=== PATIENT | female | born 1940 | race Caucasian/White ===

== ENCOUNTER 2017-08-08 17:01 | Inpatient (IN) | payer MEDICARE, BC ==
[~2017-08-08] VITALS: Ht 165.1 cm; Wt 90.7 kg
[2017-08-08] VITALS (9 sets, daily range): BP systolic 64–119; BP diastolic 37–104
[2017-08-08] MEDS ORDERED: Metoprolol 5mg/5ml Inj IVP ONE ×2 (17:30→18:15)
[2017-08-08 17:49] LABS: EOSINOPHILS % (AUTO) 0.3 % (0.0-3.0); LYMPHOCYTES % (AUTO) 8.2 % (20.0-45.0); MEAN CORPUSCULAR VOLUME 94 FL (80-99); NEUTROPHILS % (AUTO) 81.5 % (45.0-75.0); PLATELET COUNT 222 K/UL (150-450); RED BLOOD COUNT 4.36 M/UL (4.20-5.40); RED CELL DISTRIBUTION WIDTH 11.2 % (11.6-14.8); WHITE BLOOD COUNT 14.7 K/UL (4.8-10.8)
[2017-08-08 17:50] LABS: ANION GAP 9 mmol/L (5-15); BLOOD UREA NITROGEN 47 mg/dL (7-18); CALCIUM 8.4 MG/DL (8.5-10.1); CARBON DIOXIDE 27 MMOL/L (21-32); CHLORIDE 103 MMOL/L (98-107); CREATININE 1.9 MG/DL (0.55-1.30); POTASSIUM 3.1 MMOL/L (3.5-5.1); SODIUM 139 MMOL/L (136-145)
[2017-08-08 18:04] LABS: ALANINE AMINOTRANSFERASE 24 U/L (12-78); ALBUMIN 3.1 G/DL (3.4-5.0); ALKALINE PHOSPHATASE 93 U/L (46-116); ASPARTATE AMINO TRANSFERASE 15 U/L (15-37); BILIRUBIN,TOTAL 0.5 MG/DL (0.2-1.0); CKMB 1.8 NG/ML (0.0-3.6); CREATINE KINASE 46 U/L (26-308)
[2017-08-08] MEDS ORDERED: BENICAR HCT 401 EAC1 ORAL (19:17)
[2017-08-08] MEDS ORDERED: OMEPRAZOLE20 M2 ORAL (19:17)
[2017-08-08] MEDS ORDERED: LIPITOR40 MG ORAL (19:18)
[2017-08-08] MEDS ORDERED: ASPIRIN EC81 MG ORAL (19:19)
[2017-08-08] MEDS ORDERED: IBUPROFEN600 MG ORAL (19:20)
[2017-08-08] MEDS ORDERED: Metoprolol Succinate XL 50mg tab ORAL ONE (20:00)
--- NOTE | 2017-08-08 20:37 | History and Physical ---
History of Present Illness General Date patient seen: Aug 08, 2017 Time patient seen: 19:10 Reason for Hospitalization: new onset Afib with RVR, NSTEMI Present Illness HPI 77y/o female with pmh of HTN, HLD, GERD who presents with cough, congestion and SOB. Pt states she has been having cough w/ some productive sputum, congestion and SOB/wheezing for the past few days. She went to a urgent care and was given breathing treatments. Given concern, she was sent to ER. Pt denies f/c, chest pain, n/v, d/c, abd pain, dysuria. Pt also w/ LE swelling, R>L which she says is chronic. C/o orthopnea, [place] VAL[place]. In ED, pt noted to be in Afib w/ RVR w/ rate up to 170. She was noted to be tachyneic and wheezing. Pt given MTP 5mg IV and HR improved to 130s, but pt became hypotensive w/ SBP 70s so she was given IVFs w/ improvement. Pt also noted to have elevated troponin. Allergies: Coded Allergies: No Known Allergies (Unverified , 08/08/17) Medication History Scheduled Aspirin Ec* (Aspirin Ec*), 81 MG ORAL DAILY, (Reported) Atorvastatin Calcium* (Lipitor*), 40 MG ORAL BEDTIME, (Reported) Ibuprofen* (Motrin*), 800 MG ORAL THREE TIMES A DAY, (Reported) Olmesartan/Hydrochlorothiazide 40-25MG (Benicar Hct 40-25 Mg Tablet), 1 TAB ORAL DAILY, (Reported) Omeprazole (Omeprazole), 20 MG ORAL DAILY, (Reported) Patient History History Provided By: Patient, Medical Record, PMD Healthcare decision maker Resuscitation status Advanced Directive on File Past Medical/Surgical History Past Medical/Surgical History: (1) HTN (hypertension) (2) HLD (hyperlipidemia) (3) GERD (gastroesophageal reflux disease) Family History Family History: Patient reports no known family medical history. Social History Social History: (1) lives alone Review of Systems Constitutional: Reports: malaise Eye: Reports: no symptoms Respiratory: Reports: cough, orthopnea, shortness of breath, wheezing, [place] Cardiovascular: Reports: no symptoms Gastrointestinal: Reports: no symptoms Genitourinary: Reports: no symptoms Musculoskeletal: Reports: no symptoms Skin: Reports: no symptoms Psychiatric: Reports: no symptoms Neurological: Reports: no symptoms Endocrine: Reports: no symptoms Hematologic/Lymphatic: Reports: no symptoms Physical Exam Physical Exam Narrative General: alert, cooperative, no distress, appears stated age Head: normocephalic, without obvious abnormality, atraumatic Eyes: conjunctivae/corneas clear. PERRL, EOM's intact Throat: lips, mucosa, and tongue normal. MMM Neck: supple, symmetrical, trachea midline, and no JVD Lungs: +wheezing and rhonchi b/l Heart: regular rate and rhythm, S1, S2 normal, no murmur, click, rub or gallop Abdomen: soft, non-tender, non-distended, bowel sounds normal; no masses or organomegaly Extremities: extremities normal, atraumatic, no cyanosis, +R>L 2+ pitting edema to knees Pulses: 2+ and symmetric Skin: skin color, texture, turgor normal; no rashes or lesions Neurologic: grossly normal, no focal deficits Last 24 Hour Vital Signs Date Time Temp Pulse Resp B/P (MAP) Pulse Ox O2 Delivery O2 Flow Rate FiO2 08/08/17 20:17 135 94/64 08/08/17 19:15 125 22 103/54 99 Room Air 08/08/17 18:47 97.7 130 21 113/84 98 Room Air 08/08/17 18:30 97.7 136 18 99/47 99 Room Air 08/08/17 18:15 125 103/54 08/08/17 18:15 97.7 137 18 64/37 99 Room Air 08/08/17 17:45 97.7 138 16 99/47 99 Room Air 08/08/17 17:35 97.7 148 18 104/78 98 Room Air 08/08/17 17:33 172 119/104 08/08/17 17:06 97.7 152 14 119/104 98 Room Air 08/08/17 16:57 97.7 71 20 120/64 99 Room Air Intake and Output 08/08/17 08/09/17 19:00 07:00 Intake Total 0 ml Balance 0 ml Intake Oral 0 ml Laboratory Tests Test 08/08/17 17:27 White Blood Count 14.7 K/UL (4.8-10.8) H Red Blood Count 4.36 M/UL (4.20-5.40) Hemoglobin 13.0 G/DL (12.0-16.0) Hematocrit 41.0 % (37.0-47.0) Mean Corpuscular Volume 94 FL (80-99) Mean Corpuscular Hemoglobin 29.8 PG (27.0-31.0) Mean Corpuscular Hemoglobin Concent 31.7 G/DL (32.0-36.0) L Red Cell Distribution Width 11.2 % (11.6-14.8) L Platelet Count 222 K/UL (150-450) Mean Platelet Volume 6.4 FL (6.5-10.1) L Neutrophils (%) (Auto) 81.5 % (45.0-75.0) H Lymphocytes (%) (Auto) 8.2 % (20.0-45.0) L Monocytes (%) (Auto) 9.0 % (1.0-10.0) Eosinophils (%) (Auto) 0.3 % (0.0-3.0) Basophils (%) (Auto) 1.0 % (0.0-2.0) Prothrombin Time 10.1 SEC (9.30-11.50) Prothromb Time International Ratio 1.0 (0.9-1.1) Activated Partial Thromboplast Time 22 SEC (23-33) L Sodium Level 139 MMOL/L (136-145) Potassium Level 3.1 MMOL/L (3.5-5.1) L Chloride Level 103 MMOL/L (98-107) Carbon Dioxide Level 27 MMOL/L (21-32) Anion Gap 9 mmol/L (5-15) Blood Urea Nitrogen 47 mg/dL (7-18) H Creatinine 1.9 MG/DL (0.55-1.30) H Estimat Glomerular Filtration Rate mL/min (>60) Glucose Level 149 MG/DL (74-106) H Calcium Level 8.4 MG/DL (8.5-10.1) L Magnesium Level 1.8 MG/DL (1.8-2.4) Total Bilirubin 0.5 MG/DL (0.2-1.0) Aspartate Amino Transf (AST/SGOT) 15 U/L (15-37) Alanine Aminotransferase (ALT/SGPT) 24 U/L (12-78) Alkaline Phosphatase 93 U/L (46-116) Total Creatine Kinase 46 U/L (26-308) Creatine Kinase MB 1.8 NG/ML (0.0-3.6) Creatine Kinase MB Relative Index 3.9 Troponin I 0.263 ng/mL (0.000-0.056) Pro-B-Type Natriuretic Peptide 696 pg/mL (0-125) H Total Protein 6.2 G/DL (6.4-8.2) L Albumin 3.1 G/DL (3.4-5.0) L Globulin 3.1 g/dL Albumin/Globulin Ratio 1.0 (1.0-2.7) Height (Feet): 5 Height (Inches): 5.00 Weight (Pounds): 200 Medications Current Medications Medications (Trade) Dose Ordered Sig/Maria Isabel Route PRN Reason Start Time Stop Time Status Last Admin Dose Admin Levofloxacin 150 ml @ 100 mls/hr NOW ONCE IVPB 08/08/17 20:30 08/08/17 21:59 08/08/17 20:20 Sodium Chloride 1,000 ml @ 999 mls/hr Q1H1M ONCE IV 08/08/17 20:30 08/08/17 21:30 08/08/17 20:23 Assessment/Plan Problem List: (1) New onset Afib with RVR (2) NSTEMI (non-ST elevated myocardial infarction) ICD Codes: I21.4 - Non-ST elevation (NSTEMI) myocardial infarction SNOMED: 099861384 (3) Elevated serum creatinine- YANIRA vs CKD (4) HTN (hypertension) ICD Codes: I10 - Essential (primary) hypertension SNOMED: 36511524 (5) HLD (hyperlipidemia) ICD Codes: E78.5 - Hyperlipidemia, unspecified SNOMED: 69621034 (6) GERD (gastroesophageal reflux disease) ICD Codes: K21.9 - Gastro-esophageal reflux disease without esophagitis SNOMED: 722196374 Status: stable Assessment/Plan Admit to [facility] Cardiology and pulmonology consulted Trend trop/EKG Check TTE Check lipid panel, A1C, TSH Start cardizem for rate control. Avoid beta-mirta for now given wheezing Check d-dimer, BLE venous duplex to assess for DVT/PE Consider VQ scan ASA, statin Hold pt's MALIHA-I given elevated Cr, unclear baseline Empiric levaquin for bronchitis/pneumonia Pain control, supportive care, bowel regimen DVT Prophylaxis: SCD, HSQ Code Status: Full Hospital Classification Declaration: Based on this initial evaluation, and depending on the patient's clinical course, I anticipate that this patient will require hospitalization for 2-3 days for Afib w/ RVR, NSTEMI and close respiratory/hemodynamic monitoring. Disposition: Once the patient is stable to leave the hospital, I anticipate the patient will likely be discharged to the following environment: home with I spent 70 minutes on this patient's case, and 38 minutes were dedicated to counseling and/or care coordination. Discussed with patient/family, nursing staff, SW/CM, cardiology regarding clinical status, treatment course, and disposition planning. Time of note may not reflect time of encounter. Frank Brennan M.D. Aug 08, 2017 20:37
[2017-08-08] MEDS ORDERED: Ipratropium 0.02% Inh Soln 2.5ml UD HHN PRN (21:00)
--- NOTE | 2017-08-08 21:07 | Emergency Room Report ---
History of Present Illness General Chief Complaint: General Complaint Source: Patient, EMS Present Illness HPI 77-year-old female presents ED for evaluation. Proximal from urgent care for evaluation of hypotension. Patient states she's been having cough and congestive symptoms for the last few days. States she's been feeling weak and dehydrated. Blood pressure was low in the field and improved after IV fluids. Denies any fevers or chills. Denies chest pain or shortness of breath. Denies nausea or vomiting. Upon arrival patient is tachycardic to the 170s in atrial fibrillation. Patient denies any prior history of atrial fibrillation. No other aggravating relieving factors. Denies any other associated symptoms Allergies: Coded Allergies: No Known Allergies (Unverified , 08/08/17) Patient History Past Medical History: HTN Past Surgical History: none Pertinent Family History: none Social History: Denies: smoking, alcohol use, drug use Now: No Immunizations: UTD Reviewed Nursing Documentation: PMH: Agreed, PSxH: Agreed Nursing Documentation-PMH Past Medical History: No History, Except For Hx Hypertension: Yes Review of Systems All Other Systems: negative except mentioned in HPI Physical Exam Vital Signs Date Time Temp Pulse Resp B/P (MAP) Pulse Ox O2 Delivery O2 Flow Rate FiO2 08/08/17 16:57 97.7 71 20 120/64 99 Room Air Sp02 EP Interpretation: reviewed, normal General Appearance: no apparent distress, alert, GCS 15, non-toxic Head: normocephalic, atraumatic Eyes: bilateral eye normal inspection, bilateral eye PERRL ENT: hearing grossly normal, normal pharynx, no angioedema, normal voice Neck: full range of motion, supple/symm/no masses Respiratory: chest non-tender, crackles, speaking full sentences Cardiovascular #1: no edema, tachycardia Cardiovascular #2: 2+ carotid (R), 2+ carotid (L), 2+ radial (R), 2+ radial (L) , 2+ dorsalis pedis (R), 2+ dorsalis pedis (L) Gastrointestinal: normal bowel sounds, non tender, soft, non-distended, no guarding, no rebound Rectal: deferred Genitourinary: normal inspection, no CVA tenderness Musculoskeletal: back normal, gait/station normal, normal range of motion, non- tender Neurologic: alert, oriented x3, responsive, motor strength/tone normal, sensory intact, speech normal Psychiatric: judgement/insight normal, memory normal, mood/affect normal, no suicidal/homicidal ideation Reflexes: 3+ bicep (R), 3+ bicep (L), 3+ tricep (R), 3+ tricep (L), 3+ knee (R) , 3+ knee (L) Skin: normal color, no rash, warm/dry, well hydrated Lymphatic: no adenopathy Procedures Critical Care Time Critical Care Time i. I feel this is a highly complex case requiring extensive working including EKG/Rhythm strip, Xray/CT/US, Blood/urine lab work, repeat exams while in ED, and administration of strong opiates/narcotics for pain control, admission to hospital or close patient follow up. Total time: 30 min bedside evaluation and treatment excludes procedures (EKG). Reason for critical care: Hypotension, new onset atrial fibrillation, elevated troponin Possible complications: hypotension, hypertension, ME, shock, arrhythmias, metabolic acidosis, end organ damage, respiratory failure. Interventions: Labs, IV fluids, EKG, chest x-ray, Lopressor, trendeleberg, additional IV fluids, aspirin, antibiotics Course: Patient presenting with hypotension, cough and congestive symptoms. EKG shows atrial fibrillation. Given Lopressor with heart rate improving. Patient became hypotensive, improving with IV fluids and Trendelenburg position. Troponin elevated, patient denies any chest pain. Given aspirin. Given antibiotics. Consultations: nursing staff, EMS, family Performed by: Dr Martínez Tolerated well condition = critical j. because of unstable vital signs this patient had a condition that could potentially threaten life or limb. I feel this is a critical patient who required my full attention while patient was considered critical. Total Critical Care Time excluding procedures was greater than 35 minutes Medical Decision Making Diagnostic Impression: Primary Impression: Atrial fibrillation with RVR Additional Impressions: Elevated troponin Renal insufficiency Orthostatic hypotension ER Course Hospital Course 77-year-old female presents ED complaining of cough and congestion. Hypotensive. Differential diagnoses include: ME/unstable angina, contusion, muscle strain, PTX, rib fracture, pneumonia, Clinical course Patient placed on stretcher. on surveillance system monitor which shows A. fib with RVR. Lopressor given with cardioversion. After initial history and physical I ordered labs, EKG, chest x-ray, IVFs labs reviewed- no leukocytosis, hemoglobin/hematocrit ok, BUN/Cr elevated, K 3.1 , troponins elevated, BNP elevated EKG - afib with RVR Chest x-ray- b/l atelctasis vs effusion Patient became hypotensive. Improving with IV fluids and Trendelenburg position. Potassium repleted Patient denies any chest pain Levaquin given. Case discussed with Dr. Greer and he agreed to accept the patient to his service for further care and support I. I feel this is a highly complex case requiring extensive working including EKG/Rhythm strip, Xray/CT/US, Blood/urine lab work, repeat exams while in ED, and administration of strong opiates/narcotics for pain control, admission to hospital or close patient follow up. Diagnosis - afib, elevated troponin, renal insufficiency, orthostatic hypotension admitted to [facility] in critical condition Labs Test 08/08/17 17:27 White Blood Count 14.7 K/UL (4.8-10.8) Red Blood Count 4.36 M/UL (4.20-5.40) Hemoglobin 13.0 G/DL (12.0-16.0) Hematocrit 41.0 % (37.0-47.0) Mean Corpuscular Volume 94 FL (80-99) Mean Corpuscular Hemoglobin 29.8 PG (27.0-31.0) Mean Corpuscular Hemoglobin Concent 31.7 G/DL (32.0-36.0) Red Cell Distribution Width 11.2 % (11.6-14.8) Platelet Count 222 K/UL (150-450) Mean Platelet Volume 6.4 FL (6.5-10.1) Neutrophils (%) (Auto) 81.5 % (45.0-75.0) Lymphocytes (%) (Auto) 8.2 % (20.0-45.0) Monocytes (%) (Auto) 9.0 % (1.0-10.0) Eosinophils (%) (Auto) 0.3 % (0.0-3.0) Basophils (%) (Auto) 1.0 % (0.0-2.0) Prothrombin Time 10.1 SEC (9.30-11.50) Prothromb Time International Ratio 1.0 (0.9-1.1) Activated Partial Thromboplast Time 22 SEC (23-33) Sodium Level 139 MMOL/L (136-145) Potassium Level 3.1 MMOL/L (3.5-5.1) Chloride Level 103 MMOL/L (98-107) Carbon Dioxide Level 27 MMOL/L (21-32) Anion Gap 9 mmol/L (5-15) Blood Urea Nitrogen 47 mg/dL (7-18) Creatinine 1.9 MG/DL (0.55-1.30) Estimat Glomerular Filtration Rate mL/min (>60) Glucose Level 149 MG/DL (74-106) Calcium Level 8.4 MG/DL (8.5-10.1) Magnesium Level 1.8 MG/DL (1.8-2.4) Total Bilirubin 0.5 MG/DL (0.2-1.0) Aspartate Amino Transf (AST/SGOT) 15 U/L (15-37) Alanine Aminotransferase (ALT/SGPT) 24 U/L (12-78) Alkaline Phosphatase 93 U/L (46-116) Total Creatine Kinase 46 U/L (26-308) Creatine Kinase MB 1.8 NG/ML (0.0-3.6) Creatine Kinase MB Relative Index 3.9 Troponin I 0.263 ng/mL (0.000-0.056) Pro-B-Type Natriuretic Peptide 696 pg/mL (0-125) Total Protein 6.2 G/DL (6.4-8.2) Albumin 3.1 G/DL (3.4-5.0) Globulin 3.1 g/dL Albumin/Globulin Ratio 1.0 (1.0-2.7) EKG Diagnostic Results Rate: tachycardiac Rhythm: NSR ST Segments: no acute changes ASA given to the pt in ED: Yes Rhythm Strip Diag. Results EP Interpretation: yes Rhythm: no PVC's Chest X-Ray Diagnostic Results Chest X-Ray Diagnostic Results : Chest X-Ray Ordered: Yes # of Views/Limited/Complete: 1 View Indication: Other - cough EP Interpretation: Yes Interpretation: no pneumothorax, no acute cardiopulmonary disease, other - cardiomegaly Impression: Other - CHF Last Vital Signs Date Time Temp Pulse Resp B/P (MAP) Pulse Ox O2 Delivery O2 Flow Rate FiO2 08/08/17 20:17 135 94/64 08/08/17 19:15 22 99 Room Air 08/08/17 18:47 97.7 Status: improved Disposition: ADMITTED INPATIENT Condition: Critical Referrals: JORGE SYLVESTER M.D(REFERRINGMD) (PCP) MANINDER MARTÍNEZ M.D. Aug 08, 2017 21:07
[2017-08-08] MEDS ORDERED: Mylanta II UD 30ml ORAL PRN (22:00)
[2017-08-08] MEDS ORDERED: Miralax 17gm pkt ORAL PRN (22:00)
[2017-08-08] MEDS: Heparin 5000 units/ml inj SUBQ SCH (22:00)
[2017-08-08] MEDS: Docusate 100mg cap ORAL SCH (22:00)
[2017-08-08] MEDS: dilTIAZem HCl 60mg tab ORAL SCH (23:00)
[2017-08-08] MEDS: guaiFENesin ER 600mg tab ORAL SCH (23:27)
[2017-08-09] VITALS: BP 109/54
[2017-08-09] MEDS: Ipratropium 0.02% Inh Soln 2.5ml UD HHN SCH ×4 (00:37→19:06)
[2017-08-09 04:00] VITALS: BP 139/60
[2017-08-09] MEDS: dilTIAZem HCl 60mg tab ORAL SCH ×3 (06:00→21:54)
[2017-08-09 06:17] LABS: ANION GAP 7 mmol/L (5-15); BLOOD UREA NITROGEN 37 mg/dL (7-18); CALCIUM 7.9 MG/DL (8.5-10.1); CARBON DIOXIDE 25 MMOL/L (21-32); CHLORIDE 108 MMOL/L (98-107); CHOLESTEROL 134 MG/DL (< 200); CREATININE 1.4 MG/DL (0.55-1.30); HDL CHOLESTEROL 52 MG/DL (40-60); PHOSPHORUS 3.6 MG/DL (2.5-4.9); POTASSIUM 3.7 MMOL/L (3.5-5.1); SODIUM 140 MMOL/L (136-145); TRIGLYCERIDES 128 MG/DL (30-150)
[2017-08-09 08:00] VITALS: BP 144/58
[2017-08-09] MEDS: guaiFENesin 100mg/5ml Liq ud ORAL PRN ×2 (08:49→17:56)
[2017-08-09] MEDS: guaiFENesin ER 600mg tab ORAL SCH ×2 (08:50→17:56)
[2017-08-09] MEDS: Docusate 100mg cap ORAL SCH ×2 (08:51→21:00)
[2017-08-09] MEDS: Heparin 5000 units/ml inj SUBQ SCH (08:51)
[2017-08-09] MEDS ORDERED: Aspirin EC 325mg tab ORAL SCH (09:00)
[2017-08-09 10:11] LABS: BASOPHILS % (AUTO) 1.3 % (0.0-2.0); HEMATOCRIT 39.5 % (37.0-47.0); HEMOGLOBIN 13.2 G/DL (12.0-16.0); MEAN CORPUSCULAR VOLUME 95 FL (80-99); MONOCYTES % (AUTO) 9.2 % (1.0-10.0); NEUTROPHILS % (AUTO) 66.5 % (45.0-75.0); PLATELET COUNT 194 K/UL (150-450); RED BLOOD COUNT 4.17 M/UL (4.20-5.40); RED CELL DISTRIBUTION WIDTH 11.7 % (11.6-14.8); WHITE BLOOD COUNT 7.9 K/UL (4.8-10.8)
--- NOTE | 2017-08-09 10:23 | Diagnostic Imaging Report ---
Indication: Dizziness Technique: XRAY Chest 1v Comparison: None Findings: Low lung volumes artifactually exaggerate heart size and vascular markings. Heart size is likely within normal limits given technique. Mediastinal contours are sharp. There is no focal airspace consolidation, pleural effusion or pneumothorax. Multilevel degenerative changes are seen in the thoracic spine. No acute osseous body seen. Subtle density projecting in the region of the lower mediastinum may be related to hiatal hernia. Impression: No radiographic evidence of acute cardiopulmonary disease. Question hiatal hernia versus additional mediastinal mass or artifact. CT of the chest recommended for further evaluation.
--- NOTE | 2017-08-09 10:43 | Cardiac Electrophysiology PN ---
Subjective Subjective [id number] Objective Last 24 Hour Vital Signs Date Time Temp Pulse Resp B/P (MAP) Pulse Ox O2 Delivery O2 Flow Rate FiO2 08/09/17 08:00 97.8 85 19 144/58 100 Room Air 08/09/17 08:00 85 08/09/17 07:21 85 18 99 Room Air 08/09/17 07:14 92 18 98 Room Air 21 08/09/17 06:00 85 139/60 08/09/17 04:00 89 08/09/17 04:00 98.3 80 20 139/60 96 Room Air 08/09/17 00:52 79 18 98 Room Air 08/09/17 00:37 84 18 94 Room Air 08/09/17 00:37 84 18 Room Air 08/09/17 00:00 97.2 96 24 109/54 100 Room Air 08/09/17 00:00 89 08/08/17 23:00 146 117/64 08/08/17 21:00 97.7 146 24 117/64 100 Room Air 08/08/17 20:45 97.8 120 21 88/68 98 Room Air 08/08/17 20:30 97.8 120 21 88/68 98 Room Air 08/08/17 20:17 135 94/64 08/08/17 19:15 125 22 103/54 99 Room Air 08/08/17 18:47 97.7 130 21 113/84 98 Room Air 08/08/17 18:30 97.7 136 18 99/47 99 Room Air 08/08/17 18:15 125 103/54 08/08/17 18:15 97.7 137 18 64/37 99 Room Air 08/08/17 17:45 97.7 138 16 99/47 99 Room Air 08/08/17 17:35 97.7 148 18 104/78 98 Room Air 08/08/17 17:33 172 119/104 08/08/17 17:06 97.7 152 14 119/104 98 Room Air 08/08/17 16:57 97.7 71 20 120/64 99 Room Air Intake and Output 08/09/17 08/10/17 19:00 07:00 Intake Total 250 ml Balance 250 ml Intake Oral 250 ml # Voids 3 Laboratory Tests Test 08/08/17 17:27 08/08/17 23:00 08/09/17 04:10 08/09/17 09:45 White Blood Count 14.7 K/UL (4.8-10.8) H 7.9 K/UL (4.8-10.8) Red Blood Count 4.36 M/UL (4.20-5.40) 4.17 M/UL (4.20-5.40) L Hemoglobin 13.0 G/DL (12.0-16.0) 13.2 G/DL (12.0-16.0) Hematocrit 41.0 % (37.0-47.0) 39.5 % (37.0-47.0) Mean Corpuscular Volume 94 FL (80-99) 95 FL (80-99) Mean Corpuscular Hemoglobin 29.8 PG (27.0-31.0) 31.5 PG (27.0-31.0) H Mean Corpuscular Hemoglobin Concent 31.7 G/DL (32.0-36.0) L 33.3 G/DL (32.0-36.0) Red Cell Distribution Width 11.2 % (11.6-14.8) L 11.7 % (11.6-14.8) Platelet Count 222 K/UL (150-450) 194 K/UL (150-450) Mean Platelet Volume 6.4 FL (6.5-10.1) L 6.8 FL (6.5-10.1) Neutrophils (%) (Auto) 81.5 % (45.0-75.0) H 66.5 % (45.0-75.0) Lymphocytes (%) (Auto) 8.2 % (20.0-45.0) L 21.0 % (20.0-45.0) Monocytes (%) (Auto) 9.0 % (1.0-10.0) 9.2 % (1.0-10.0) Eosinophils (%) (Auto) 0.3 % (0.0-3.0) 2.0 % (0.0-3.0) Basophils (%) (Auto) 1.0 % (0.0-2.0) 1.3 % (0.0-2.0) Prothrombin Time 10.1 SEC (9.30-11.50) Prothromb Time International Ratio 1.0 (0.9-1.1) Activated Partial Thromboplast Time 22 SEC (23-33) L Sodium Level 139 MMOL/L (136-145) 140 MMOL/L (136-145) Potassium Level 3.1 MMOL/L (3.5-5.1) L 3.7 MMOL/L (3.5-5.1) Chloride Level 103 MMOL/L (98-107) 108 MMOL/L (98-107) H Carbon Dioxide Level 27 MMOL/L (21-32) 25 MMOL/L (21-32) Anion Gap 9 mmol/L (5-15) 7 mmol/L (5-15) Blood Urea Nitrogen 47 mg/dL (7-18) H 37 mg/dL (7-18) H Creatinine 1.9 MG/DL (0.55-1.30) H 1.4 MG/DL (0.55-1.30) H Estimat Glomerular Filtration Rate mL/min (>60) mL/min (>60) Glucose Level 149 MG/DL (74-106) H 95 MG/DL (74-106) Calcium Level 8.4 MG/DL (8.5-10.1) L 7.9 MG/DL (8.5-10.1) L Magnesium Level 1.8 MG/DL (1.8-2.4) 1.7 MG/DL (1.8-2.4) L Total Bilirubin 0.5 MG/DL (0.2-1.0) Aspartate Amino Transf (AST/SGOT) 15 U/L (15-37) Alanine Aminotransferase (ALT/SGPT) 24 U/L (12-78) Alkaline Phosphatase 93 U/L (46-116) Total Creatine Kinase 46 U/L (26-308) Creatine Kinase MB 1.8 NG/ML (0.0-3.6) Creatine Kinase MB Relative Index 3.9 Troponin I 0.263 ng/mL (0.000-0.056) 0.789 ng/mL (0.000-0.056) 0.855 ng/mL (0.000-0.056) 0.660 ng/mL (0.000-0.056) Pro-B-Type Natriuretic Peptide 696 pg/mL (0-125) H 1484 pg/mL (0-125) H Total Protein 6.2 G/DL (6.4-8.2) L Albumin 3.1 G/DL (3.4-5.0) L Globulin 3.1 g/dL Albumin/Globulin Ratio 1.0 (1.0-2.7) D-Dimer 0.50 mg/L FEU (0.00-0.49) H Hemoglobin A1c 7.2 % (4.3-6.0) H Phosphorus Level 3.6 MG/DL (2.5-4.9) Triglycerides Level 128 MG/DL (30-150) Cholesterol Level 134 MG/DL (< 200) LDL Cholesterol 66 mg/dL (<100) HDL Cholesterol 52 MG/DL (40-60) Cholesterol/HDL Ratio 2.6 (3.3-4.4) L Thyroid Stimulating Hormone (TSH) 1.028 uiU/mL (0.358-3.740) Free Thyroxine 1.60 NG/DL (0.76-1.46) H RICARDO LINO Aug 09, 2017 10:43
[2017-08-09] MEDS: NovoLOG Insulin Flexpen SUBQ SCH ×3 (11:30→21:00)
[2017-08-09 12:00] VITALS: BP 115/68
[2017-08-09] MEDS ORDERED: Enoxaparin 100mg Inj SUBQ SCH (12:00)
--- NOTE | 2017-08-09 13:11 | Cardiology Report ---
APPROVED REPORT EXAM: Two-dimensional and M-mode echocardiogram with Doppler and color Doppler. INDICATION Shortness of Breath Technically difficult study due to poor acoustical windows. Study quality precludes accurate assessment of regional wall motion. M-mode measurements of left ventricle not obtainable due to cardiac position (angle). Normal left ventricular chamber size, systolic function and wall motion to extent visualized. Left ventricular ejection fraction estimated to be 60 %. No evidence of left ventricular hypertrophy. Anterior Echo-free space, may be due to pericardial fat or effusion. Left atrial chamber size is within normal limits. Right ventricular chamber size is within normal limits. Mild right atrial enlargement. Focal aortic valve sclerosis with adequate cusp excursion. Mildly thickened mitral valve leaflets with normal excursion. Mild mitral annulus and aortic root calcification. Pulmonic valve not well visualized. Normal tricuspid valve structure. IVC at normal size with physiologic collapse. A color flow and spectral Doppler study was performed and revealed: Mild aortic regurgitation. Mild mitral regurgitation. Mitral diastolic velocities suggest reduced left ventricular relaxation c/w mild LV diastolic dysfunction (Grade I ). Mild tricuspid regurgitation. Tricuspid systolic velocities suggests peak right ventricular systolic pressure of 38 mmHg, consistent with mild pulmonary hypertension. Trace pulmonic regurgitation present.
[2017-08-09] MEDS: Enoxaparin Sodium 300mg/3ml vial SUBQ SCH ×2 (13:49→21:53)
[2017-08-09 16:00] VITALS: BP 125/60
[2017-08-09 20:00] VITALS: BP 133/66
[2017-08-09] MEDS ORDERED: Atorvastatin 80mg tab ORAL SCH (21:00)
--- NOTE | 2017-08-09 21:46 | Consultation ---
DATE OF CONSULTATION: 08/09/2017 CARDIOLOGY AND ELECTROPHYSIOLOGY CONSULTATION CONSULTING PHYSICIAN: Noe Pryor M.D. REFERRING PHYSICIAN: Opal Cisneros M.D. REASON FOR CONSULTATION: Atrial fibrillation with rapid ventricular response with heart of 170s, as well as elevated troponin, and abnormal electrocardiogram. HISTORY OF PRESENT ILLNESS: The patient is a very pleasant 77-year-old lady with history of hypertension, who went to the urgent care for cough and weakness. The patient was referred from urgent care for hypotension as well as atrial fibrillation with heart rate of 170s. The patient was evaluated in the emergency room and received Lopressor. The patient became hypotensive and had improved with IV fluids and Trendelenburg position. The troponin was also elevated even though the patient did not have any chest pain. The patient was admitted to [facility] for elevated troponin, atrial fibrillation with rapid ventricular response, as well as orthostatic hypotension. PAST MEDICAL HISTORY: 1. Hypertension. 2. History of spine surgery at [facility]. FAMILY HISTORY: Noncontributory. SOCIAL HISTORY: She is single. Does not smoke or drink alcohol. REVIEW OF SYSTEMS: Thoroughly performed and was negative other than what was mentioned in the history of present illness. PHYSICAL EXAMINATION: VITAL SIGNS: Show blood pressure of 144/58, pulse is 85, respirations are 18, and she is afebrile. HEAD AND NECK: Shows No JVD. LUNGS: Clear. CARDIOVASCULAR: Shows regular S1 and S2 with no gallop. ABDOMEN: Soft. EXTREMITIES: Show bilateral 2+ pitting edema, left more than right. LABORATORY AND DIAGNOSTIC DATA: Labs show sodium 140, potassium 3.7, BUN of 37, creatinine 1.4, and glucose of 95. Troponins 0.789 and 0.855. BNP is 1484. TSH is normal, free T4 is mildly elevated. Initial troponin was 0.263. ASSESSMENT AND PLAN: 1. Atrial fibrillation with rapid ventricular response. This in the office was newly diagnosed. I will start the patient on Cardizem 60 mg every eight hours for rate control. I will start the patient on Lovenox per pharmacy stress test. If the stress test is abnormal, the patient will need cardiac catheterization. If the stress test is negative, then that switch to Eliquis 5 mg b.i.d. We will start the patient also on Lovenox at this time. If the stress is negative, then we will change it to Eliquis. 2. Elevated troponins. The levels were 1.26, 0.78, 0.85, and 0.6. We will schedule the patient for a nuclear stress test for further evaluation. 3. Lower extremity edema and elevated BNP. She had an echocardiogram that showed ejection fraction of 60%, could be due to diastolic dysfunction. We will rule out deep venous thrombosis as well. We will get a lower extremity Doppler. I will start the patient on Lasix 40 mg IV daily. 4. Hypertension. Switch angiotensin-converting enzyme inhibitor to Cardizem at this time for better rate control. 5. Diabetes. 6. Hyperlipidemia, on Lipitor. 7. Upper respiratory tract infection, on Levaquin. It is of note that the patient's CHADS score is more than 3. In view of age more than 75, diabetes, female gender, and hypertension, certainly would need long-term anticoagulation in view of her atrial fibrillation. Thank you very much, Dr. Cisenros, for allowing me to participate in the care of this patient. Please do not hesitate to contact me for any questions regarding my evaluation. Noe Pryor M.D. DR: Vidhya JOB#: [id number] CC:
[2017-08-10] MEDS: Ipratropium 0.02% Inh Soln 2.5ml UD HHN SCH ×3 (01:15→12:38)
[2017-08-10 04:00] VITALS: BP 120/55
[2017-08-10] MEDS: dilTIAZem HCl 60mg tab ORAL SCH ×2 (06:03→14:18)
[2017-08-10] MEDS: NovoLOG Insulin Flexpen SUBQ SCH ×2 (06:05→11:08)
--- NOTE | 2017-08-10 06:47 | General Progress Note ---
Assessment/Plan Problem List: (1) New onset Afib with RVR (2) NSTEMI (non-ST elevated myocardial infarction) ICD Codes: I21.4 - Non-ST elevation (NSTEMI) myocardial infarction SNOMED: 151784504 (3) HTN (hypertension) ICD Codes: I10 - Essential (primary) hypertension SNOMED: 85254732 (4) HLD (hyperlipidemia) ICD Codes: E78.5 - Hyperlipidemia, unspecified SNOMED: 28691646 (5) GERD (gastroesophageal reflux disease) ICD Codes: K21.9 - Gastro-esophageal reflux disease without esophagitis SNOMED: 255462831 (6) YANIRA (acute kidney injury) ICD Codes: N17.9 - Acute kidney failure, unspecified SNOMED: 28708373 (7) DM2 (diabetes mellitus, type 2) ICD Codes: E11.9 - Type 2 diabetes mellitus without complications SNOMED: 29870607 (8) Hypokalemia ICD Codes: E87.6 - Hypokalemia SNOMED: 74963621 (9) Hypomagnesemia ICD Codes: E83.42 - Hypomagnesemia SNOMED: 542702832 Status: stable Assessment/Plan Cardiology and pulmonology consulted Trend trop/EKG--peaked at 0.8 F/u TTE Plan for nuclear cardic stress test Contt cardizem for rate control. Avoid beta-mirta for now given wheezing D-dimer mildly elevated. F/u BLE venous duplex to assess for DVT/PE Consider VQ scan Lovenox per pharmacy for AC for Afib (CHADS2 score of at least 3) Hold pt's MALIHA-I given elevated Cr, unclear baseline Consider diuresis Empiric levaquin for bronchitis/pneumonia (08/08-) Pain control, supportive care, bowel regimen DVT Prophylaxis: Lovenox Code Status: Full Hospital Classification Declaration: Based on this initial evaluation, and depending on the patient's clinical course, I anticipate that this patient will require hospitalization for 1-2 days for Afib w/ RVR, NSTEMI and close respiratory/hemodynamic monitoring. Disposition: Once the patient is stable to leave the hospital, I anticipate the patient will likely be discharged to the following environment: home with HH Discussed with patient/family, nursing staff, SW/CM, cardiology regarding clinical status, treatment course, and disposition planning. D/w cardiology re plan for stress test, anticoagulation. D/w pt extensively re plan of care Time of note may not reflect time of encounter. Subjective Date patient seen: Aug 09, 2017 Time patient seen: 10:00 ROS Limited/Unobtainable: No Constitutional: Reports: no symptoms HEENT: Reports: no symptoms Cardiovascular: Reports: no symptoms Respiratory: Reports: cough, orthopnea, shortness of breath, SOB with excertion Gastrointestinal/Abdominal: Reports: no symptoms Genitourinary: Reports: no symptoms Neurologic/Psychiatric: Reports: no symptoms Endocrine: Reports: no symptoms Hematologic/Lymphatic: Reports: no symptoms Allergies: Coded Allergies: No Known Allergies (Unverified , 08/08/17) All Systems: reviewed and negative except above Subjective No acute o/n events Troponin lila overnight to 0.8, now downtrending to 0.6 Seen by cardiology ad nuc cardic stress test ordered Pt states SOB, cough, cough, congestion improving. Denies f/c, n/v, d/c, chest pain. Pt would like to be discharged soon Objective Last 24 Hour Vital Signs Date Time Temp Pulse Resp B/P (MAP) Pulse Ox O2 Delivery O2 Flow Rate FiO2 08/10/17 06:03 74 146/66 08/10/17 04:00 98.0 72 20 120/55 96 Room Air 08/10/17 04:00 70 08/10/17 01:24 78 20 94 Room Air 08/10/17 01:23 21 08/10/17 01:23 76 20 92 Room Air 08/10/17 00:00 72 08/09/17 21:54 78 132/68 08/09/17 20:00 99.0 81 20 133/66 96 Room Air 08/09/17 20:00 82 08/09/17 19:27 86 18 95 Room Air 08/09/17 19:10 21 08/09/17 19:06 85 18 96 Room Air 08/09/17 16:00 87 08/09/17 16:00 97.9 84 18 125/60 98 Room Air 08/09/17 13:54 71 18 97 Room Air 08/09/17 13:48 76 115/68 08/09/17 13:44 21 08/09/17 13:43 76 18 98 Room Air 21 08/09/17 12:00 98.7 82 18 115/68 98 Room Air 08/09/17 11:51 78 08/09/17 08:00 97.8 85 19 144/58 100 Room Air 08/09/17 08:00 85 08/09/17 07:21 85 18 99 Room Air 08/09/17 07:14 92 18 98 Room Air 21 Laboratory Tests 08/09/17 09:45: White Blood Count 7.9, Red Blood Count 4.17L, Hemoglobin 13.2, Hematocrit 39.5, Mean Corpuscular Volume 95, Mean Corpuscular Hemoglobin 31.5H, Mean Corpuscular Hemoglobin Concent 33.3, Red Cell Distribution Width 11.7, Platelet Count 194, Mean Platelet Volume 6.8, Neutrophils (%) (Auto) 66.5, Lymphocytes (%) (Auto) 21.0, Monocytes (%) (Auto) 9.2, Eosinophils (%) (Auto) 2.0, Basophils (%) (Auto ) 1.3, Troponin I 0.660H Height (Feet): 5 Height (Inches): 5.00 Weight (Pounds): 200 Objective General: alert, cooperative, no distress, appears stated age Head: normocephalic, without obvious abnormality, atraumatic Eyes: conjunctivae/corneas clear. PERRL, EOM's intact Throat: lips, mucosa, and tongue normal. MMM Neck: supple, symmetrical, trachea midline, and no JVD Lungs: +mild wheezing b/l Heart: regular rate and rhythm, S1, S2 normal, no murmur, click, rub or gallop Abdomen: soft, non-tender, non-distended, bowel sounds normal; no masses or organomegaly Extremities: extremities normal, atraumatic, no cyanosis, R>L 2+ pitting edema to knees Pulses: 2+ and symmetric Skin: skin color, texture, turgor normal; no rashes or lesions Neurologic: grossly normal, no focal deficits Frank Brennan M.D. Aug 10, 2017 06:47
[2017-08-10 07:34] LABS: ANION GAP 5 mmol/L (5-15); BLOOD UREA NITROGEN 25 mg/dL (7-18); CALCIUM 8.5 MG/DL (8.5-10.1); CARBON DIOXIDE 28 MMOL/L (21-32); CHLORIDE 106 MMOL/L (98-107); CREATININE 1.1 MG/DL (0.55-1.30); PHOSPHORUS 3.3 MG/DL (2.5-4.9); POTASSIUM 3.6 MMOL/L (3.5-5.1); SODIUM 138 MMOL/L (136-145)
[2017-08-10 07:37] LABS: BASOPHILS % (AUTO) 0.7 % (0.0-2.0); EOSINOPHILS % (AUTO) 3.1 % (0.0-3.0); HEMATOCRIT 37.3 % (37.0-47.0); HEMOGLOBIN 12.7 G/DL (12.0-16.0); LYMPHOCYTES % (AUTO) 28.2 % (20.0-45.0); MEAN CORPUSCULAR VOLUME 94 FL (80-99); PLATELET COUNT 188 K/UL (150-450); RED BLOOD COUNT 3.97 M/UL (4.20-5.40); RED CELL DISTRIBUTION WIDTH 11.4 % (11.6-14.8); WHITE BLOOD COUNT 7.4 K/UL (4.8-10.8)
[2017-08-10 08:00] VITALS: BP 150/73
[2017-08-10] MEDS ORDERED: Lexiscan 0.4mg/5ml syringe IV PRN (09:00)
[2017-08-10] MEDS: Docusate 100mg cap ORAL SCH (09:00)
[2017-08-10] MEDS: guaiFENesin ER 600mg tab ORAL SCH (09:23)
[2017-08-10] MEDS: Enoxaparin Sodium 300mg/3ml vial SUBQ SCH (09:26)
[2017-08-10 12:00] VITALS: BP 144/69
--- NOTE | 2017-08-10 13:05 | Cardiac Electrophysiology PN ---
Assessment/Plan Assessment/Plan 1. Atrial fibrillation with rapid ventricular response. This in the office was newly diagnosed. On Cardizem 60 mg every eight hours and Lovenox. If the stress test is abnormal, the patient will need cardiac catheterization. If the stress test is negative, then that switch to Eliquis 5 mg b.i.d. 2. Elevated troponins. The levels were 1.26, 0.78, 0.85, and 0.6. Nuclear stress test result is pending 3. Lower extremity edema and elevated BNP. She had an echocardiogram that showed ejection fraction of 60%, could be due to diastolic dysfunction. We will rule out deep venous thrombosis as well. Add Lasix 40 mg IV daily. 4. Hypertension. Switched angiotensin-converting enzyme inhibitor to Cardizem at this time for better rate control. 5. Diabetes. 6. Hyperlipidemia, on Lipitor. 7. Upper respiratory tract infection, on Levaquin. Subjective Subjective FEELING BETTER. HAD NUCLEAR STRESS TEST TODAY. Objective Last 24 Hour Vital Signs Date Time Temp Pulse Resp B/P (MAP) Pulse Ox O2 Delivery O2 Flow Rate FiO2 08/10/17 12:25 89 08/10/17 12:00 98.8 79 21 144/69 96 Room Air 08/10/17 08:00 98.8 74 22 150/73 97 Room Air 08/10/17 08:00 68 08/10/17 06:48 76 18 96 Room Air 08/10/17 06:38 21 08/10/17 06:38 76 16 94 Room Air 08/10/17 06:03 74 146/66 08/10/17 04:00 98.0 72 20 120/55 96 Room Air 08/10/17 04:00 70 08/10/17 01:24 78 20 94 Room Air 08/10/17 01:23 21 08/10/17 01:23 76 20 92 Room Air 08/10/17 00:00 72 08/09/17 21:54 78 132/68 08/09/17 20:00 99.0 81 20 133/66 96 Room Air 08/09/17 20:00 82 08/09/17 19:27 86 18 95 Room Air 21 08/09/17 19:10 21 08/09/17 19:06 85 18 96 Room Air 21 08/09/17 16:00 87 08/09/17 16:00 97.9 84 18 125/60 98 Room Air 08/09/17 13:54 71 18 97 Room Air 21 08/09/17 13:48 76 115/68 08/09/17 13:44 21 08/09/17 13:43 76 18 98 Room Air 21 Laboratory Tests Test 08/10/17 07:00 White Blood Count 7.4 K/UL (4.8-10.8) Red Blood Count 3.97 M/UL (4.20-5.40) L Hemoglobin 12.7 G/DL (12.0-16.0) Hematocrit 37.3 % (37.0-47.0) Mean Corpuscular Volume 94 FL (80-99) Mean Corpuscular Hemoglobin 31.9 PG (27.0-31.0) H Mean Corpuscular Hemoglobin Concent 33.9 G/DL (32.0-36.0) Red Cell Distribution Width 11.4 % (11.6-14.8) L Platelet Count 188 K/UL (150-450) Mean Platelet Volume 6.9 FL (6.5-10.1) Neutrophils (%) (Auto) 59.0 % (45.0-75.0) Lymphocytes (%) (Auto) 28.2 % (20.0-45.0) Monocytes (%) (Auto) 9.0 % (1.0-10.0) Eosinophils (%) (Auto) 3.1 % (0.0-3.0) H Basophils (%) (Auto) 0.7 % (0.0-2.0) Sodium Level 138 MMOL/L (136-145) Potassium Level 3.6 MMOL/L (3.5-5.1) Chloride Level 106 MMOL/L (98-107) Carbon Dioxide Level 28 MMOL/L (21-32) Anion Gap 5 mmol/L (5-15) Blood Urea Nitrogen 25 mg/dL (7-18) H Creatinine 1.1 MG/DL (0.55-1.30) Estimat Glomerular Filtration Rate mL/min (>60) Glucose Level 101 MG/DL (74-106) Calcium Level 8.5 MG/DL (8.5-10.1) Phosphorus Level 3.3 MG/DL (2.5-4.9) Magnesium Level 1.8 MG/DL (1.8-2.4) Objective HEAD AND NECK: Shows No JVD. LUNGS: Clear. CARDIOVASCULAR: Shows regular S1 and S2 with no gallop. ABDOMEN: Soft. EXTREMITIES: Show bilateral 2+ pitting edema, left more than right. RICARDO LINO Aug 10, 2017 13:05
[2017-08-10] MEDS ORDERED: ELIQUIS5 MG PO (14:37)
[2017-08-10] MEDS ORDERED: CARDIZEM CD120 MG ORAL (14:38)
[2017-08-10] MEDS ORDERED: LEVAQUIN750 MG ORAL (14:41)
[2017-08-10] MEDS ORDERED: MUCINEX600 MG ORAL (14:41)
[2017-08-10] MEDS ORDERED: FUROSEMIDE40 MG ORAL (14:43)
--- NOTE | 2017-08-10 14:54 | Diagnostic Imaging Report ---
Indications: 77-year-old female with chest pain and hypertension Technique: Single day single isotope protocol utilized. Initially, resting images obtained using IV administration 11 millicuries 99M technetium Myoview. Subsequently, patient underwent lexiscan stress testing. See cardiology report for details. During adenosine infusion, IV administration 32.6 mCi 99 M technetium Myoview. SPECT and planar images obtained. SPECT images gated to 8 phases of the cardiac cycle were also obtained, and reformatted into cine images for evaluation of ejection fraction. Comparison: none Findings: Per cardiology report, patient experienced no chest pain. Per cardiology report, resting EKG demonstrates normal sinus rhythm. On imaging, there is normal perfusion post stress. No fixed or reversible perfusion defects. Normal left ventricular chamber size. Calculated post stress ejection fraction 90%. No focal wall motion abnormality Impression: Nonischemic clinical response to pharmacologic stress, per cardiology report Nonischemic electrocardiographic response to pharmacologic stress, per cardiology report No imaging findings to suggest ischemia, at level of stress achieved. Calculated post stress ejection fraction greater than 70%
[2017-08-10] MEDS ORDERED: METFORMIN HCL500 M1 ORAL (15:12)
--- NOTE | 2017-08-10 15:47 | Diagnostic Imaging Report ---
Indication: Shortness of breath Technique: One view of the chest Comparison: none Findings: Lungs and pleural spaces are clear. Heart size is normal. Impression: No acute process
--- NOTE | 2017-08-10 15:50 | Consultation ---
History of Present Illness General Date patient seen: Aug 10, 2017 Time patient seen: 14:00 Chief Complaint: General Complaint Referring physician: dr Cisneros Reason for Consultation: pulm consult Present Illness HPI 77 y/old female with PMH of HTN, DM, hyperlipidemia , GERD presented with cough and congestive symptoms for the last few days. Reported feeling weak and dehydrated. Blood pressure was low in the field and responded to IV fluids. No fevers or chills. No chest pain or shortness of breath. No nausea or vomiting. Upon arrival to ED patient is tachycardic - 170s , and tele showed in atrial fibrillation. Patient denied any prior history of atrial fibrillation. CXR revealed no acute CP pathology pulse oximetry was stable on RA pro BNP-696 Troponin elevated -0.263 Evidence of acute renal failure with BUN-47 and creat-1.9 K-3.1 While in ED patient became hypotensive, was placed in Trendelenburg position and blood pressure subsequently improved patient was admitted to [facility] for further management Allergies: Coded Allergies: No Known Allergies (Unverified , 08/08/17) Medication History Scheduled Apixaban (Eliquis), 5 MG PO BID Atorvastatin Calcium* (Lipitor*), 40 MG ORAL BEDTIME, (Reported) Diltiazem Hcl* (Cardizem Cd*), 120 MG ORAL DAILY Furosemide* (Lasix*), 40 MG ORAL DAILY Guaifenesin (Mucinex), 600 MG ORAL TWICE A DAY Levofloxacin* (Levaquin*), 750 MG ORAL DAILY Metformin Hcl* (Metformin Hcl*), 500 MG ORAL BID Omeprazole (Omeprazole), 20 MG ORAL DAILY, (Reported) Discontinued Medications Aspirin Ec* (Aspirin Ec*), 81 MG ORAL DAILY, (Reported) Discontinued Reason: MD discontinued med Ibuprofen* (Motrin*), 800 MG ORAL THREE TIMES A DAY, (Reported) Discontinued Reason: discontinued med Olmesartan/Hydrochlorothiazide 40-25MG (Benicar Hct 40-25 Mg Tablet), 1 TAB ORAL DAILY, (Reported) Discontinued Reason: MD discontinued med Patient History Healthcare decision maker Resuscitation status Full Code Advanced Directive on File Past Medical/Surgical History Past Medical/Surgical History: (1) HTN (hypertension) (2) HLD (hyperlipidemia) (3) A-fib (4) DM2 (diabetes mellitus, type 2) (5) GERD (gastroesophageal reflux disease) Review of Systems Constitutional: Reports: weakness Respiratory: Reports: see HPI Cardiovascular: Reports: palpitations Gastrointestinal: Reports: constipation, other - GERD Genitourinary: Reports: no symptoms Musculoskeletal: Reports: muscle pain Psychiatric: Reports: no symptoms Endocrine: Reports: other - DM Hematologic/Lymphatic: Reports: no symptoms Physical Exam General Appearance: WD/WN, no apparent distress, alert Lines, tubes and drains: peripheral HEENT: normocephalic, atraumatic, anicteric, mucous membranes moist, PERRL Neck: non-tender, supple Respiratory/Chest: lungs clear, respiratory distress Cardiovascular/Chest: normal rate, regular rhythm, no JVD Abdomen: normal bowel sounds, non tender, soft Extremities: non-tender, no calf tenderness, normal capillary refill Skin Exam: normal pigmentation, warm/dry Neurologic: alert Musculoskeletal: normal muscle bulk Last 24 Hour Vital Signs Date Time Temp Pulse Resp B/P (MAP) Pulse Ox O2 Delivery O2 Flow Rate FiO2 08/10/17 14:18 89 107/54 08/10/17 12:48 78 18 98 Room Air 08/10/17 12:38 21 08/10/17 12:38 74 16 96 Room Air 08/10/17 12:25 89 08/10/17 12:00 98.8 79 21 144/69 96 Room Air 08/10/17 08:00 98.8 74 22 150/73 97 Room Air 08/10/17 08:00 68 08/10/17 06:48 76 18 96 Room Air 08/10/17 06:38 21 08/10/17 06:38 76 16 94 Room Air 08/10/17 06:03 74 146/66 08/10/17 04:00 98.0 72 20 120/55 96 Room Air 08/10/17 04:00 70 08/10/17 01:24 78 20 94 Room Air 08/10/17 01:23 21 08/10/17 01:23 76 20 92 Room Air 08/10/17 00:00 72 08/09/17 21:54 78 132/68 08/09/17 20:00 99.0 81 20 133/66 96 Room Air 08/09/17 20:00 82 08/09/17 19:27 86 18 95 Room Air 08/09/17 19:10 21 12/14/17 19:06 85 18 96 Room Air 21 08/09/17 16:00 87 08/09/17 16:00 97.9 84 18 125/60 98 Room Air Laboratory Tests Test 08/10/17 07:00 White Blood Count 7.4 K/UL (4.8-10.8) Red Blood Count 3.97 M/UL (4.20-5.40) L Hemoglobin 12.7 G/DL (12.0-16.0) Hematocrit 37.3 % (37.0-47.0) Mean Corpuscular Volume 94 FL (80-99) Mean Corpuscular Hemoglobin 31.9 PG (27.0-31.0) H Mean Corpuscular Hemoglobin Concent 33.9 G/DL (32.0-36.0) Red Cell Distribution Width 11.4 % (11.6-14.8) L Platelet Count 188 K/UL (150-450) Mean Platelet Volume 6.9 FL (6.5-10.1) Neutrophils (%) (Auto) 59.0 % (45.0-75.0) Lymphocytes (%) (Auto) 28.2 % (20.0-45.0) Monocytes (%) (Auto) 9.0 % (1.0-10.0) Eosinophils (%) (Auto) 3.1 % (0.0-3.0) H Basophils (%) (Auto) 0.7 % (0.0-2.0) Sodium Level 138 MMOL/L (136-145) Potassium Level 3.6 MMOL/L (3.5-5.1) Chloride Level 106 MMOL/L (98-107) Carbon Dioxide Level 28 MMOL/L (21-32) Anion Gap 5 mmol/L (5-15) Blood Urea Nitrogen 25 mg/dL (7-18) H Creatinine 1.1 MG/DL (0.55-1.30) Estimat Glomerular Filtration Rate mL/min (>60) Glucose Level 101 MG/DL (74-106) Calcium Level 8.5 MG/DL (8.5-10.1) Phosphorus Level 3.3 MG/DL (2.5-4.9) Magnesium Level 1.8 MG/DL (1.8-2.4) Height (Feet): 5 Height (Inches): 5.00 Weight (Pounds): 200 Medications Current Medications Medications (Trade) Dose Ordered Sig/Maria Isabel Route PRN Reason Start Time Stop Time Status Last Admin Dose Admin Acetaminophen (Tylenol) 650 mg Q4H PRN ORAL Mild Pain (Pain Scale 1-3) 08/08/17 20:45 09/07/17 20:44 Al Hydroxide/Mg Hydroxide (Mylanta II) 30 ml Q6H PRN ORAL dyspepsia 08/08/17 22:00 09/07/17 21:59 Atorvastatin Calcium (Lipitor) 40 mg BEDTIME ORAL 08/09/17 21:00 09/08/17 20:59 08/09/17 21:53 Dextrose (Dextrose 50%) STAT PRN IV Hypoglycemia 08/09/17 08:00 09/08/17 07:59 Diltiazem HCl (Cardizem) 60 mg EVERY 8 HOURS ORAL 08/08/17 23:00 09/07/17 22:59 08/10/17 14:18 Diphenhydramine HCl (Benadryl) 25 mg Q6H PRN ORAL Itching/Pruritis 08/08/17 22:00 09/07/17 21:59 Docusate Sodium (Colace) 100 mg EVERY 12 HOURS ORAL 08/08/17 22:00 09/07/17 21:59 Enoxaparin Sodium (Lovenox) 90 mg Q12HR SUBQ 08/09/17 13:00 09/08/17 12:59 08/10/17 09:26 Furosemide (Lasix) 40 mg DAILY IV 08/11/17 09:00 09/10/17 08:59 Guaifenesin (Mucinex ER) 600 mg TWICE A DAY ORAL 08/08/17 22:00 09/07/17 21:59 08/10/17 09:23 Guaifenesin (Robitussin) 100 mg Q4H PRN ORAL For Cough 08/08/17 21:00 09/07/17 20:59 08/09/17 17:56 Insulin Aspart (NovoLOG) BEFORE MEALS AND HS SUBQ 08/09/17 11:30 09/08/17 11:29 Ipratropium [place] (Atrovent) 500 mcg Q4H PRN HHN Shortness of Breath 08/08/17 21:00 08/13/17 20:59 Ipratropium [place] (Atrovent) 500 mcg Q6HR HHN 08/09/17 00:00 08/14/17 00:00 08/10/17 12:38 Levofloxacin (Levaquin) 750 mg DAILY ORAL 08/10/17 15:00 08/17/17 14:59 08/10/17 15:20 Ondansetron HCl (Zofran) 4 mg Q6H PRN IVP Nausea & Vomiting 08/08/17 22:00 09/07/17 21:59 Pantoprazole (Protonix) 40 mg DAILY ORAL 08/09/17 09:00 09/08/17 08:59 08/10/17 09:23 Polyethylene Glycol (Miralax) 17 gm DAILYPRN PRN ORAL Constipation 08/08/17 22:00 09/07/17 21:59 Regadenoson (Lexiscan) 0.4 mg ONCE PRN IV Stress test 08/10/17 09:00 08/10/17 18:00 08/10/17 11:02 Assessment/Plan Assessment/Plan ASSESSMENT New onset of AF with RVR elevated troponin possible NSTEMI hypotension LE edema with elevated proBNP acute purulent bronchitis acute kidney injury (creat-1.9), possibly on CRI mild pulmonary HTN HTN DM hyperlipidemia hypokalemia -resolved PLAN OF CARE [facility] O2 HHN prn to keep sat above 92% CXR negative empiric abx a/tussive prn Fup with CXR will recommend outpt fup with pulmo for PFT cardio follows rate control with Cardizem a/coagulation with Lovenox serial troponin noted with small elevation stress test pending depending on stress test results a/coagulation will be converted to Eliquis or patient may need cardiac cath BP management with Cardizem and optimize further as needed ECHO with pEF 60% and RVSP of 38 c/w mild pulmonary HTN BS management , HgA1c- 7.2, continue SS lipid panel stable, continue statin monitor renal parameters, lytes and correct as needed creat trending down case discussed and evaluated by supervising physician Rigoberto Dumont),Alison GARZA Aug 10, 2017 15:50
[2017-08-10 16:00] VITALS: BP 120/61
[2017-08-10] MEDS ORDERED: Tubing IV Secondary IV ONE (16:12)
[2017-08-10] MEDS ORDERED: NS 500ML ONE (16:12)
--- NOTE | 2017-08-12 14:50 | Cardiology Report ---
APPROVED REPORT EKG Measurement Heart [id number] Sinus rhythm with occasional premature ventricular complexes Nonspecific ST abnormality Abnormal ECG
--- NOTE | 2017-08-20 19:22 | Cardiology Report ---
APPROVED REPORT EKG Measurement Heart [id number] Atrial fibrillation with rapid ventricular response Marked ST abnormality, possible lateral subendocardial injury Abnormal ECG
--- NOTE | 2017-08-23 00:15 | Diagnostic Imaging Report ---
APPROVED REPORT CPT Code: 11242 Present Symptoms Comments: Swelling BILATERAL: Imaging reveals a patent deep venous system bilaterally. There is no evidence of thrombus within the femoral, popliteal or tibial segments. The greater saphenous veins are also within normal limits. Doppler indicates normal spontaneous flow within these segments.
--- NOTE | 2017-08-28 20:37 | Discharge Summary ---
Discharge Summary Hospital Course Date of Admission Aug 08, 2017 at 19:36 Date of Discharge Aug 10, 2017 at 16:13 Admitting Diagnosis new onset afib HPI 77y/o female with pmh of HTN, HLD, GERD who presents with cough, congestion and SOB. Pt states she has been having cough w/ some productive sputum, congestion and SOB/wheezing for the past few days. She went to a urgent care and was given breathing treatments. Given concern, she was sent to ER. Pt denies f/c, chest pain, n/v, d/c, abd pain, dysuria. Pt also w/ LE swelling, R>L which she says is chronic. C/o orthopnea, [place]. In ED, pt noted to be in Afib w/ RVR w/ rate up to 170. She was noted to be tachyneic and wheezing. Pt given MTP 5mg IV and HR improved to 130s, but pt became hypotensive w/ SBP 70s so she was given IVFs w/ improvement. Pt also noted to have elevated troponin. Consultations Cardiology, Pulmonology Hospital Course Pt was admitted to [facility]. Her troponin peaked at 0.8. Her heart rate was controlled with diltiazem. She was started on anticoagulation. Nuclear stress test was negative. She was treated for bronchitis with course of antibiotics and nebulizers. She symptomatically improved. Prior to d/c pt was HD stable, tolerating PO and ambulating w/o assistance. Discharge physical exam General: alert, cooperative, no distress, appears stated age Head: normocephalic, without obvious abnormality, atraumatic Eyes: conjunctivae/corneas clear. PERRL, EOM's intact Throat: lips, mucosa, and tongue normal. MMM Neck: supple, symmetrical, trachea midline, and no JVD Lungs: clear to auscultation bilaterally Heart: regular rate and rhythm, S1, S2 normal, no murmur, click, rub or gallop Abdomen: soft, non-tender, non-distended, bowel sounds normal; no masses or organomegaly Extremities: extremities normal, atraumatic, no cyanosis or edema Pulses: 2+ and symmetric Skin: skin color, texture, turgor normal; no rashes or lesions Neurologic: grossly normal, no focal deficits Discharge Medications New Medications: Apixaban (Eliquis) 5 Mg Tablet 5 MG PO BID for 30 Days, #60 TAB 3 Refills Diltiazem Hcl* (Cardizem Cd*) 120 Mg Cap.er.24h 120 MG ORAL DAILY for 30 Days, #30 CAP 3 Refills Do not open, chew or crush capsule; swallow whole Furosemide* (Lasix*) 40 Mg Tablet 40 MG ORAL DAILY for 30 Days, #30 TAB 0 Refills Levofloxacin* (Levaquin*) 750 Mg Tablet 750 MG ORAL DAILY for 5 Days, #5 TAB Metformin Hcl* (Metformin Hcl*) 500 Mg Tablet 500 MG ORAL BID for 30 Days, #60 TAB 3 Refills take with meals Guaifenesin (Mucinex) 600 Mg Tab.er.12h 600 MG ORAL TWICE A DAY for 14 Days, TAB for cough, congestion Continued Medications: Atorvastatin Calcium* (Lipitor*) 40 Mg Tablet 40 MG ORAL BEDTIME Omeprazole (Omeprazole) 20 Mg Capsule.dr 20 MG ORAL DAILY Discontinued Medications: Aspirin Ec* (Aspirin Ec*) 81 Mg Tablet.dr 81 MG ORAL DAILY Ibuprofen* (Motrin*) 600 Mg Tablet 800 MG ORAL THREE TIMES A DAY Olmesartan/Hydrochlorothiazide 40-25MG (Benicar Hct 40-25 Mg Tablet) 1 Each Tablet 1 TAB ORAL DAILY Discharge Condition Upon Discharge: stable Discharge Disposition Patient was discharged to Home (01) Discharge Diagnoses: (1) Atrial fibrillation with RVR (2) Acute purulent bronchitis (3) NSTEMI (non-ST elevated myocardial infarction) (4) YANIRA (acute kidney injury) (5) DM2 (diabetes mellitus, type 2) (6) HTN (hypertension) (7) HLD (hyperlipidemia) (8) GERD (gastroesophageal reflux disease) (9) Hypokalemia (10) Hypomagnesemia Frank Brennan M.D. Aug 28, 2017 20:37
== END 2017-08-10 16:13 | disposition home or self-care (01) | DRG 281 ==
LOC: EDBD 17:01 → EDBEDREQSVC 18:02 → EMR 19:34 → 2W 19:36 → EDBEDREQ 19:48 → 2W 23:19
DX: I21.4 Non-ST elevation (NSTEMI) myocardial infarction (principal); N17.9 Acute kidney failure, unspecified; I27.20 Pulmonary hypertension, unspecified; I48.91 Unspecified atrial fibrillation; J20.9 Acute bronchitis, unspecified; E83.42 Hypomagnesemia; E11.9 Type 2 diabetes mellitus without complications; I95.1 Orthostatic hypotension; I10 Essential (primary) hypertension; K21.9 Gastro-esophageal reflux disease without esophagitis; E78.5 Hyperlipidemia, unspecified
CPT/HCPCS: 36415; 71010; 78452; 80048; 80053; 80061; 82550; 82553; 82962; 83036; 83735; 83880; 84100; 84439; 84443; 84484; 85025; 85379; 85610; 85730; 87081; 93005; 93017; 93306; 93970; 94640; 94664; J1815; J8499